=== PATIENT | female | born 2000 | race Caucasian/White ===

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

== ENCOUNTER 2018-12-29 21:32 | Emergency (ER) | payer OTHER ==
[~2018-12-29] VITALS: Ht 157.5 cm; Wt 78.5 kg
[2018-12-29 22:43] VITALS: Ht 157.5 cm; Wt 78.5 kg
[2018-12-29 23:58] VITALS: BP 117/78
== END 2018-12-29 23:58 | disposition home or self-care (01) ==
LOC: ED 21:32
DX: H66.91 Otitis media, unspecified, right ear (principal)

== ENCOUNTER 2019-01-25 08:44 | Emergency (ER) | payer OTHER ==
[~2019-01-25] VITALS: Ht 157.5 cm; Wt 78.0 kg
[2019-01-25 08:48] VITALS: BP 126/83; Ht 157.5 cm; Wt 78.0 kg
[2019-01-25 10:43] LABS: UA SPECIFIC GRAVITY >=1.030 (1.005-1.035); microscopic required? YES; urine erythrocyte 2+ (NEGATIVE)
== END 2019-01-25 11:45 | disposition home or self-care (01) ==
LOC: ED 08:44
PROVIDERS: Emergency Medicine
DX: N39.0 Urinary tract infection, site not specified (principal); F17.210 Nicotine dependence, cigarettes, uncomplicated; J45.909 Unspecified asthma, uncomplicated

== ENCOUNTER 2019-06-05 20:37 | Emergency (ER) | payer OTHER ==
[~2019-06-05] VITALS: Ht 157.5 cm; Wt 77.6 kg
[2019-06-05 23:13] LABS: BASOPHIL % 0.5 % (0-2); PLATELET COUNT 281 x10^3mcL (130-400)
[2019-06-05 23:28] LABS: CALCIUM 9.6 mg/dL (8.5-10.1); CARBON DIOXIDE 27.9 mmol/L (21-32); CHLORIDE SERUM 105 mmol/L (98-107); CREATININE SERUM 0.8 mg/dL (0.6-1.0); GFR1 > 60 mL/min; GLUCOSE SERUM 83 mg/dL (74-106); POTASSIUM SERUM 3.8 mmol/L (3.5-5.1); SODIUM SERUM 141 mmol/L (136-145)
[2019-06-05 23:36] LABS: ALBUMIN 4.2 g/dL (3.4-5.0); ALKALINE PHOSPHATASE 59 U/L (46-116); ALT/SGPT 18 U/L (14-59); AST/SGOT 11 U/L (15-37); BILIRUBIN TOTAL 0.3 mg/dL (0.20-1.00); LIPASE 69 IU/L (73-393); TOTAL PROTEIN, SERUM 7.3 g/dL (6.4-8.2)
[2019-06-06 00:13] VITALS: BP 122/72
== END 2019-06-06 00:13 | disposition home or self-care (01) ==
LOC: ED 20:37
PROVIDERS: Emergency Medicine
DX: R04.0 Epistaxis (principal); R10.32 Left lower quadrant pain; R10.31 Right lower quadrant pain; G89.29 Other chronic pain; J45.909 Unspecified asthma, uncomplicated; Z90.89 Acquired absence of other organs
CPT/HCPCS: 36415

== ENCOUNTER 2020-10-04 13:18 | Emergency (ER) | payer OTHER ==
[~2020-10-04] VITALS: Ht 157.5 cm; Wt 80.7 kg
[2020-10-04 13:29] VITALS: Ht 157.5 cm; Wt 80.7 kg
[2020-10-04 15:39] VITALS: BP 124/78
[2020-10-04 15:43] LABS: UA SPECIFIC GRAVITY 1.025 (1.005-1.035); microscopic required? YES; urine erythrocyte TRACE (NEGATIVE)
== END 2020-10-04 15:39 | disposition home or self-care (01) ==
LOC: ED 13:18
PROVIDERS: Student in an Organized Health Care Education/Training Program
DX: N30.00 Acute cystitis without hematuria (principal); J45.909 Unspecified asthma, uncomplicated

== ENCOUNTER 2021-01-09 09:12 | Emergency (ER) | payer OTHER ==
[~2021-01-09] VITALS: Ht 157.5 cm; Wt 78.9 kg
[2021-01-09] MEDS ORDERED: AMO500 PO (11:31)
[2021-01-09 11:35] VITALS: BP 115/75
== END 2021-01-09 11:35 | disposition home or self-care (01) ==
LOC: ED 09:12
DX: J02.8 Acute pharyngitis due to other specified organisms (principal); J45.909 Unspecified asthma, uncomplicated
CPT/HCPCS: 87804; J1885